=== PATIENT | male | born 1945 | race Caucasian/White ===

== ENCOUNTER 2017-02-18 08:35 | Day surgery (SDC) | payer OTHER ==
--- NOTE | ~2017-02-18 | EGD ---
EGD REPORT [facility] [address] [id number] NAME: JUANITO CHAPARRO : [birth year] STATUS : REG [facility]#: [id number] AGE: 71 ADM/REG DATE : 02/18/17 MR#: [id number] REPORT SERV DATE: 02/18/17 DICTATED BY: MELIDA VASQUEZ DATE: 02/18/17 REPORT STATUS : Draft TRANSCRIBED BY: [employer] DATE: 02/18/17 [facility] Patient Name: Juanito Chaparro Date of : 1945 Attending MD: MELIDA VASQUEZ, Procedure Date No Time: 02/18/2017 Procedure: Colonoscopy Indications: High risk colon cancer surveillance: Personal history of colonic polyps Referring MD: JUANITO HUFF Medicines: Monitored Anesthesia Care Complications: No immediate complications. Estimated blood loss: None. Procedure: Pre-Anesthesia Assessment: - ASA Grade Assessment: II - A patient with mild systemic disease. After I obtained informed consent, the scope was passed under direct vision. Throughout the procedure, the patient's blood pressure, pulse, and oxygen saturations were monitored continuously. The CF [id number] was introduced through the anus with the intention of advancing to the cecum. The scope was advanced to the descending colon before the procedure was aborted. Medications were given. The colonoscopy was performed without difficulty. The patient tolerated the procedure well. The quality of the bowel preparation was poor. Findings: The perianal and digital rectal examinations were normal. Semi-liquid semi-solid stool was found in the rectum, in the sigmoid colon and in the descending colon, interfering with visualization. Impression: - Preparation of the colon was poor. - Stool in the rectum, in the sigmoid colon and in the descending colon. Recommendation: - Patient has a contact number available for emergencies. The signs and symptoms of potential delayed complications were discussed with the patient. Return to normal activities tomorrow. Written discharge instructions were provided to the patient. - Return to previous diet. - Continue present medications. - Repeat colonoscopy at the next available appointment because the bowel preparation was poor. EGD REPORT [facility] [address] [place] [id number] NAME: JUANITO CHAPARROORY : [birth year] STATUS : REG [facility] [place] PAT#: [id number] AGE: 71 ADM/REG DATE : 02/18/17 MR#: [id number] REPORT SERV DATE: 02/18/17 DICTATED BY: MELIDA VASQUEZ DATE: 02/18/17 REPORT STATUS : Draft TRANSCRIBED BY: [employer] DATE: 02/18/17 Procedure Code(s): --- Professional --- 54337, 53, Colonoscopy, flexible, proximal to splenic flexure; diagnostic, with or without collection of specimen(s) by brushing or washing, with or without colon decompression (separate procedure) Diagnosis Code(s): --- Professional --- Z86.010, Personal history of colonic polyps CPT copyright 2013 [employer]. All rights reserved. The codes documented in this report are preliminary and upon bowl topper review may be revised to meet current compliance requirements. MELIDA VASQUEZ, 02/18/2017 11:12 AM Number of Addenda: 0 Note Initiated On: 02/18/2017 10:49 AM Scope Withdrawal Time 0 hours 0 minutes 0 seconds [address] [place] [address]
--- NOTE | ~2017-02-18 | EGD ---
EGD REPORT [facility] [address] [id number] NAME: JUANITO CHAPARRO : [birth year] STATUS : REG [facility]#: [id number] AGE: 71 ADM/REG DATE : 02/18/17 MR#: [id number] REPORT SERV DATE: 02/18/17 DICTATED BY: MELIDA VASQUEZ DATE: 02/18/17 REPORT STATUS : Draft TRANSCRIBED BY: [employer] DATE: 02/18/17 [facility] Center Patient Name: Juanito Chaparro Date of : 1945 Attending MD: MELIDA VASQUEZ, Procedure Date No Time: 02/18/2017 Procedure: Upper GI endoscopy Indications: Follow-up of Lott's esophagus Referring MD: JUANITO HUFF Medicines: Monitored Anesthesia Care Complications: No immediate complications. Estimated blood loss: None. Procedure: Pre-Anesthesia Assessment: - ASA Grade Assessment: II - A patient with mild systemic disease. After obtaining informed consent, the endoscope was passed under direct vision. Throughout the procedure, the patient's blood pressure, pulse, and oxygen saturations were monitored continuously. The GIF [id number] was introduced through the mouth, and advanced to the second part of duodenum. The upper GI endoscopy was accomplished without difficulty. The patient tolerated the procedure well. Findings: The esophagus and gastroesophageal junction were examined with white light. Lott's esophagus was present, extending from the upper extent of the gastric folds which were at 43 cm from the incisors to the Z-line which was at 43 cm from the incisors. Two tongues of salmon-colored mucosa were present from 42 to 43 cm. The maximum longitudinal extent of these esophageal mucosal changes was 1 cm in length. Biopsies were taken with a cold forceps for histology. Verification of patient identification for the specimen was done. Estimated blood loss was minimal. The exam of the esophagus was otherwise normal. The entire examined stomach was normal. The cardia and gastric fundus were normal on retroflexion. The examined duodenum was normal. Impression: - Lott's esophagus. Biopsied. - Normal stomach. - Normal examined duodenum. Recommendation: - Patient has a contact number available for emergencies. The signs and symptoms of potential delayed complications were discussed with the patient. Return to EGD REPORT [address] [address] NAME: JUANITO CHAPARRO : [birth year] STATUS : REG [facility] [place] PAT#: [id number] AGE: 71 ADM/REG DATE : 02/18/17 MR#: [id number] REPORT SERV DATE: 02/18/17 DICTATED BY: MELIDA VASQUEZ DATE: 02/18/17 REPORT STATUS : Draft TRANSCRIBED BY: [facility] DATE: 02/18/17 normal activities tomorrow. Written discharge instructions were provided to the patient. - Return to previous diet. - Await pathology results. - Continue present medications. - Repeat the upper endoscopy for surveillance based on pathology results. Procedure Code(s): --- Professional --- 92011, Esophagogastroduodenoscopy, flexible, transoral; with biopsy, single or multiple Diagnosis Code(s): --- Professional --- K22.70, Lott's esophagus without dysplasia CPT copyright 2013 [employer]. All rights reserved. The codes documented in this report are preliminary and upon medical review specialist review may be revised to meet current compliance requirements. MELIDA VASQUEZ, 02/18/2017 11:10 AM Number of Addenda: 0 Note Initiated On: 02/18/2017 10:53 AM Scope Withdrawal Time 0 hours 0 minutes 0 seconds [address] [id number]
[~2017-02-18 08:35] MED LIST: DORYX100 MG PO; FLOMAX4 PO; IBU600 PO; PRILO PO; PROSCAR5 PO; SANCTURA20 MG PO; VITAMIN D31000 UNIT PO
== END 2017-02-18 23:59 | disposition home or self-care (01) ==
LOC: DMU 08:35
PROVIDERS: Internal Medicine Gastroenterology
PROC: 0DB58ZX Excision of Esophagus, Via Natural or Artificial Opening Endoscopic, Diagnostic (ICD-10-PCS; 2017-02-18)
PROC: 0DJD8ZZ Inspection of Lower Intestinal Tract, Via Natural or Artificial Opening Endoscopic (ICD-10-PCS; principal; 2017-02-18 10:00)
PROC: 0DB48ZX Excision of Esophagogastric Junction, Via Natural or Artificial Opening Endoscopic, Diagnostic (ICD-10-PCS; 2017-02-18 10:00)
DX: Z12.11 Encounter for screening for malignant neoplasm of colon (principal); K22.70 Barrett's esophagus without dysplasia; Z86.73 Personal history of transient ischemic attack (TIA), and cerebral infarction without residual deficits; K21.9 Gastro-esophageal reflux disease without esophagitis; I34.1 Nonrheumatic mitral (valve) prolapse; D56.1 Beta thalassemia; Z86.010 Personal history of colon polyps; Z79.899 Other long term (current) drug therapy
CPT/HCPCS: 88305